=== PATIENT | female | born 1985 | race Caucasian/White ===

== ENCOUNTER 2016-09-05 05:13 | Day surgery (SDC) | payer BC ==
--- NOTE | ~2016-09-05 | OP ---
Record Of Operation [facility] [address] [place]. [address] NAME: DIONISIO KING : 87 STATUS : [facility] [place] PAT#: [id number] AGE: 31 ADM/REG DATE : 09/05/16 MR#: [id number] REPORT SERV DATE: 09/05/16 DICTATED BY: DORI BAKER DATE: 09/05/16 REPORT STATUS : Draft TRANSCRIBED BY: MODL DATE: 09/05/16 DATE OF PROCEDURE: 09/05/2016 PREPROCEDURE DIAGNOSIS: A 5 to 6 mm left proximal ureteral calculus. POSTPROCEDURE DIAGNOSIS: A 5 to 6 mm left proximal ureteral calculus. PROCEDURE: Left ESWL. SURGEON: Dori Baker M.D. FIRST ASSISTANCE: Shaunna Benedict. ANESTHESIA: MAC. HISTORY: Ms King is a 31-year-old female with a symptomatic left proximal ureteral stone. We discussed treatment options and she requested left ESWL. The risks specific to this procedure include, but not limited to bleeding, infection, incomplete stone fragmentation, Steinstrasse, hematoma, injury to neighboring organs, need for further urologic procedures, anesthesia complications, and so forth. I answered all her questions I believe to her satisfaction. Subsequently, she requested the procedure and provided her informed written consent. PROCEDURE IN DETAIL: On 09/05/2016, the patient was brought to the lithotripsy suite. She was placed supine on the Dornier Compact Delta II lithotripter. Biplanar fluoroscopy was used to localize the left ureteral calculus. A time-out was called. The proper patient and procedure were confirmed. Levaquin was administered as a perioperative antibiotic. At this time, the Anesthesia team established monitored anesthesia care. Subsequently, we delivered a total of 2500 shocks at a maximum power of 4 kilovolts in rate of 90 shocks per minute to the stone. Fluoroscopy time was 2 minutes. The patient tolerated the procedure well without immediate complications and was transferred to the recovery area in stable condition. RAC/NO Dori Baker M.D. / [id number] CC: Hair Colon M.D.
[~2016-09-05 05:13] MED LIST: FLOMAX4 PO; NORCO1 TA2 PO; [UNRECOGNIZED DRUG - OTHER] PO
== END 2016-09-05 11:18 | disposition home or self-care (01) ==
LOC: SDC 05:13
PROVIDERS: Urology
PROC: 0TF7XZZ Fragmentation in Left Ureter, External Approach (ICD-10-PCS; principal; 2016-09-05 07:00)
DX: N20.1 Calculus of ureter (principal); Z87.442 Personal history of urinary calculi; Z79.899 Other long term (current) drug therapy; Z79.891 Long term (current) use of opiate analgesic; Z98.890 Other specified postprocedural states
CPT/HCPCS: 50590; 74000; 84703; A9270-GY; J2250; J2405; J3010